=== PATIENT | male | born 1940 | race Caucasian/White ===

== ENCOUNTER 2021-12-30 06:17 | Inpatient (IN) | payer MEDICARE ==
[~2021-12-30] VITALS: Ht 175.3 cm; Wt 90.0 kg
[~2021-12-30 06:17] MED LIST: LOVA40 PO; OXYACE5T PO; TERA5 PO
[2021-12-30 06:36] LABS: BASOPHILS ABSOLUTE AUTO 0.02 K/mm3 (0.00-0.23); BASOPHILS PERCENT AUTO 0 % (0-2); EOSINOPHILS PERCENT AUTO 1 % (0-6); Hematocrit 36.2 % (37.0-53.0); Hemoglobin 11.4 g/dL (13.5-17.5); IMMATURE GRAN ABSOLUTE AUTO 0.05 K/mm3 (0.00-0.10); IMMATURE GRAN PERCENT AUTO 0 % (0-1); LYMPHOCYTES ABSOLUTE AUTO 1.16 K/mm3 (0.84-5.20); LYMPHOCYTES PERCENT AUTO 8 % (21-46); MONOCYTES ABSOLUTE AUTO 1.15 K/mm3 (0.16-1.47); MONOCYTES PERCENT AUTO 8 % (4-13); Mean Corpuscular HGB 23.8 pg (26.0-34.0); Mean Corpuscular HGB Conc 31.5 g/dL (31.5-36.5); Mean Corpuscular Volume 76 fL (80-100); Mean Platelet Volume 9.3 fL (9.1-12.4); NEUTROPHILS ABSOLUTE AUTO 12.24 K/mm3 (1.96-9.15); NEUTROPHILS PERCENT AUTO 83 % (41-73); Platelet Count 335 K/mm3 (150-400); RDW Standard Deviation 44.2 fL (35.1-46.3); Red Blood Cell Count 4.79 M/mm3 (4.30-5.90); White Blood Cell Count 14.72 K/mm3 (4.00-11.30)
[2021-12-30 06:54] LABS: Alanine Aminotransfer (ALT/SGP 31 U/L (12-78); Albumin, Blood 3.1 g/dL (3.4-5.0); Albumin/Globulin Ratio 0.8 (0.8-1.8); Alk Phos 95 U/L (50-136); Anion Gap 11 mmol/L (6-16); Aspartate Aminotrans (AST/SGOT 22 U/L (12-37); Bilirubin, Total 0.4 mg/dL (0.1-1.0); Blood Urea Nitrogen 14 mg/dL (8-24); Bun/Creatinine Ratio 17.7 (12.0-20.0); CO2, Blood 22 mmol/L (21-32); Calcium, Blood 8.8 mg/dL (8.5-10.1); Chloride, Blood 105 mmol/L (98-108); Creatinine, Blood 0.79 mg/dL (0.60-1.20); Glomerular Filtration Rate >60 (60-); Glucose, Blood 172 mg/dL (70-99); Potassium, Blood 3.8 mmol/L (3.5-5.5); Sodium, Blood 138 mmol/L (136-145); Total Protein, Blood 7.1 g/dL (6.4-8.2)
[2021-12-30 06:56] LABS: Source, Urine Voided
[2021-12-30 07:00] LABS: Bilirubin, Urine Neg (Neg); Blood, Urine 2+ (Neg); Glucose Qualitative, Urine Neg (Neg); Ketones, Urine 1+ (Neg); Leukocyte Esterase, Urine Neg (Neg); Nitrite, Urine Neg (Neg); Protein, Urine 2+ (Neg); Urobilinogen, Urine NORM (Normal)
[2021-12-30 07:14] LABS: Appearance, Urine Clear (Clear); Color, Urine Yellow (P-Yellow); Mucus Light (0-Heavy)
[2021-12-30 07:15] LABS: Squamous Epithelial Cells Rare /hpf (Few)
[2021-12-30 07:17] LABS: Bacteria Rare /hpf
[2021-12-30 08:53] LABS: Influenza A, PCR NEGATIVE (NEGATIVE); Influenza B, PCR NEGATIVE (NEGATIVE); Resp Syncytial Virus, PCR NEGATIVE (NEGATIVE); SARS-Cov-2 (COVID-19) PCR, MMC NEGATIVE (NEGATIVE)
--- NOTE | 2021-12-30 13:44 | NUR ---
PATIENT ARRIVED TO UNIT FROM ED AT 1250 AWAKE,ALERT AND ORIENTED TIMES THREE.DENIES PAIN. MADE AWRE OF PATIENT ABDOMINAL CT AND NEW ORDER RECIEVED FOR SURGERY CONSULT AND KEEP PATIENT NPO. DR. JOHNSON STATES THAT SHE WILL MAKE CHANGE TO PATIENT ANTIBIOTIC TREATMENT.
--- NOTE | 2021-12-30 14:30 | NUR ---
MADE AWARE THAT PATIENT IS AFIB ON THE MONITOR,NO NEW ORDER RECIEVED. MD ADVISED NURSE TO NOTIFY MD IF RATE INCREASE.
--- NOTE | 2021-12-30 17:20 | NUR ---
PATIENT ARRIVED TO UNIT FROM ED AWAKE,ALERT AND ORIENTED TIMES THREE. PATIENT REMAIN NPO. DR. DELONG ROUND ON PATIENT AND DISCUSS PLAN OF CARE. PATIENT IS AFIB AT A RATE AT 90.NO ACUTE DISTRESS NOTED.PATIENT ENCOURAGE TO USE CALL RAJAN FOR ASSISTANCE.
--- NOTE | 2021-12-31 04:49 | NUR ---
SHIFT SUMMARY PATIENT ALERT WITH SOME FORGETFULLNESS ABLE TO VOICE NEEDS PATIENT NOTED WITH SINUS TACH AND MULTIPLE PVCS HR 90-[address] MATTA MADE AWARE TYLENOL ADM WITH RELIEF TEMP 98.8.PT CALM PLEASANT NO S/S OF DISTRESS CONT ZOSYN Q 6.PT IS NPO FOR PROCEDURE TODAY ABDOMINAL DISTENDED WITH HYPO ACTIVE BOWEL SOUNDS PORTER INTACT DRAINING DARK BROWN URINE ON CONT NS RUNNING AT 100ML/HR.
[2021-12-31 05:17] LABS: BASOPHILS ABSOLUTE AUTO 0.02 K/mm3 (0.00-0.23); BASOPHILS PERCENT AUTO 0 % (0-2); EOSINOPHILS ABSOLUTE AUTO 0.01 K/mm3 (0.00-0.68); EOSINOPHILS PERCENT AUTO 0 % (0-6); Hematocrit 34.5 % (37.0-53.0); Hemoglobin 10.8 g/dL (13.5-17.5); IMMATURE GRAN PERCENT AUTO 1 % (0-1); LYMPHOCYTES ABSOLUTE AUTO 1.44 K/mm3 (0.84-5.20); LYMPHOCYTES PERCENT AUTO 8 % (21-46); MONOCYTES ABSOLUTE AUTO 0.92 K/mm3 (0.16-1.47); MONOCYTES PERCENT AUTO 5 % (4-13); Mean Corpuscular HGB 23.6 pg (26.0-34.0); Mean Corpuscular HGB Conc 31.3 g/dL (31.5-36.5); Mean Corpuscular Volume 75 fL (80-100); Mean Platelet Volume 9.6 fL (9.1-12.4); NEUTROPHILS ABSOLUTE AUTO 15.52 K/mm3 (1.96-9.15); NEUTROPHILS PERCENT AUTO 86 % (41-73); Platelet Count 307 K/mm3 (150-400); RDW Coefficient Variation 16.7 % (11.7-14.2); RDW Standard Deviation 45.1 fL (35.1-46.3); Red Blood Cell Count 4.58 M/mm3 (4.30-5.90); White Blood Cell Count 18.01 K/mm3 (4.00-11.30)
[2021-12-31 05:37] LABS: Anion Gap 8 mmol/L (6-16); Blood Urea Nitrogen 10 mg/dL (8-24); Bun/Creatinine Ratio 12.5 (12.0-20.0); CO2, Blood 24 mmol/L (21-32); Calcium, Blood 8.8 mg/dL (8.5-10.1); Chloride, Blood 106 mmol/L (98-108); Glomerular Filtration Rate >60 (60-); Glucose, Blood 109 mg/dL (70-99); Potassium, Blood 3.6 mmol/L (3.5-5.5); Sodium, Blood 138 mmol/L (136-145)
--- NOTE | 2021-12-31 12:44 | NUR ---
12/31/21 1244 Adolph Gary PATIENT ARRIVED TO OR WITH PORTER CATH IN DRAINING DARK WALTER URINE AND ON SCHEDULED ANTIBIOTICS TAP BLACK DONE INTRA OP PER DR. DELONG
--- NOTE | 2021-12-31 13:57 | NUR ---
REPORT GIVEN TO GUICHO PASCUAL ON SURGICAL FLOOR. NON FURTHER QUESTIONS REQUIRED AT THIS TIME.
--- NOTE | 2021-12-31 17:37 | NUR ---
1625 ASSUMED CARE DROWSY DOES OPEN EYES TO VERBAL STIMULI AND COUGHED WHEN I ASKED HIM TO. LUNGS DO SOUND MUCH BETTER RESP A LITTLE LABORED NO FACIAL GRIMACE
--- NOTE | 2021-12-31 18:34 | NUR ---
PT. TO ROOM #[id number] AT 1820. SLEEPY BUT AROUSABLE. DENIES PAIN, ABDOMEN IS TENDER TO TOUCH. O2 UP TO 3.5L AT THIS TIME , PER NC, TO KEEP SATS ABOVE 90%, AT THIS TIME IS 91%. .IVF AT TKO AT THIS TIME. VSS. TELEMETRY APPLIED, NSR 68. [place] TO GRAVITY, PATENT.
[2022-01-01 06:21] LABS: BASOPHILS ABSOLUTE AUTO 0.01 K/mm3 (0.00-0.23); BASOPHILS PERCENT AUTO 0 % (0-2); EOSINOPHILS PERCENT AUTO 0 % (0-6); Hematocrit 30.9 % (37.0-53.0); Hemoglobin 9.3 g/dL (13.5-17.5); IMMATURE GRAN ABSOLUTE AUTO 0.12 K/mm3 (0.00-0.10); IMMATURE GRAN PERCENT AUTO 1 % (0-1); LYMPHOCYTES ABSOLUTE AUTO 1.26 K/mm3 (0.84-5.20); LYMPHOCYTES PERCENT AUTO 9 % (21-46); MONOCYTES ABSOLUTE AUTO 0.67 K/mm3 (0.16-1.47); MONOCYTES PERCENT AUTO 5 % (4-13); Mean Corpuscular HGB 23.6 pg (26.0-34.0); Mean Corpuscular HGB Conc 30.1 g/dL (31.5-36.5); Mean Corpuscular Volume 78 fL (80-100); Mean Platelet Volume 10.1 fL (9.1-12.4); NEUTROPHILS ABSOLUTE AUTO 12.63 K/mm3 (1.96-9.15); NEUTROPHILS PERCENT AUTO 86 % (41-73); Platelet Count 280 K/mm3 (150-400); RDW Coefficient Variation 16.5 % (11.7-14.2); RDW Standard Deviation 47.9 fL (35.1-46.3); Red Blood Cell Count 3.94 M/mm3 (4.30-5.90); White Blood Cell Count 14.69 K/mm3 (4.00-11.30)
[2022-01-01 06:41] LABS: Albumin, Blood 2.1 g/dL (3.4-5.0); Anion Gap 6 mmol/L (6-16); Blood Urea Nitrogen 23 mg/dL (8-24); Bun/Creatinine Ratio 22.8 (12.0-20.0); CO2, Blood 26 mmol/L (21-32); Calcium, Blood 7.9 mg/dL (8.5-10.1); Chloride, Blood 106 mmol/L (98-108); Creatinine, Blood 1.01 mg/dL (0.60-1.20); Glomerular Filtration Rate >60 (60-); Glucose, Blood 135 mg/dL (70-99); Phosphorus, Blood 2.8 mg/dL (2.5-4.9); Sodium, Blood 138 mmol/L (136-145)
--- NOTE | 2022-01-01 07:22 | NUR ---
POD 1 S/P COLECTOMY. SATS >90% ON 3LO2, PT EDUCATED ON TCDB AND I/S USE. PT HAD T-MAX OF 100.8, RESOLVED W/TYLENOL AND NON PHARM COOLING MEASURES. INCISIONS CDI. ABD REMAINS DISTENDED AND GAURDED. BT HYPO, PT REP NO FLATUS YET. PT BRINDA CL PO, DENIED N/V. PORTER PATANT PATANT DRNG TEA COLORED URINE. PAIN MGD PER EMAR. PT REPOSITIONED BRINDA, DOES SHIFT SELF IN BED. REPORT GIVEN TO SHUKRI Campo RN.
--- NOTE | 2022-01-01 09:38 | NUR ---
PT EDUCATED PARCEL POST ORDER CLERK LIGHT USE AND SAFETY MEASURES. PT STATES HE IS "STUBBORN AND WILL DO IT WHEN I AM READY", "WILL DO IT ON MY OWN". REINFORCED IMPORTANCE OF LETTING US HELP TO PREVENT FALLS AND PROVIDE SAFETY FOR HIM.
--- NOTE | 2022-01-01 14:52 | NUR ---
SHIFT SUMMARY POD 1 LAP COLECTOMY, X4 INCISIONS W/DERMABOND, C/D/I. MILD DISTENTION TO ABD, HYPO BT. DENIES FLATUS. A&O X 4, VSS, AFEBRILE, SATS >92% ON RA, [place]. LOW TO ZERO PO INTAKE. ZOFRAN GIVEN X1 FOR N/V. PORTER IN PLACE, DRAINING CLEAR YELLOW URINE, STAT LOCK IN PLACE, BAG OFF FLOOR. PAIN MANAGED W/ TYLENOL AND 5MG OXYCODONE. WILL REPORT TO ONCOMING RN.
--- NOTE | 2022-01-02 03:52 | NUR ---
PT CONT TO HAVE ONGOING N/V. PT HAD MULTIPLE EPISODES OF UNMEASURED BILE COLORED EMESIS W/NO SIG RELIEF W/PRN NAUSEA MEDS. NGT PLACED W/BILE COLORED DRNG. TUBE PLACED TO LIS. PT EDUCATED.
[2022-01-02 04:09] LABS: BASOPHILS ABSOLUTE AUTO 0.01 K/mm3 (0.00-0.23); BASOPHILS PERCENT AUTO 0 % (0-2); EOSINOPHILS ABSOLUTE AUTO 0.03 K/mm3 (0.00-0.68); EOSINOPHILS PERCENT AUTO 0 % (0-6); Hematocrit 32.5 % (37.0-53.0); Hemoglobin 9.9 g/dL (13.5-17.5); IMMATURE GRAN ABSOLUTE AUTO 0.04 K/mm3 (0.00-0.10); IMMATURE GRAN PERCENT AUTO 0 % (0-1); LYMPHOCYTES ABSOLUTE AUTO 0.71 K/mm3 (0.84-5.20); LYMPHOCYTES PERCENT AUTO 7 % (21-46); MONOCYTES ABSOLUTE AUTO 0.57 K/mm3 (0.16-1.47); MONOCYTES PERCENT AUTO 5 % (4-13); Mean Corpuscular HGB 23.5 pg (26.0-34.0); Mean Corpuscular HGB Conc 30.5 g/dL (31.5-36.5); Mean Corpuscular Volume 77 fL (80-100); Mean Platelet Volume 10.1 fL (9.1-12.4); NEUTROPHILS PERCENT AUTO 88 % (41-73); Platelet Count 319 K/mm3 (150-400); RDW Coefficient Variation 16.5 % (11.7-14.2); RDW Standard Deviation 46.4 fL (35.1-46.3); Red Blood Cell Count 4.21 M/mm3 (4.30-5.90); White Blood Cell Count 10.96 K/mm3 (4.00-11.30)
--- NOTE | 2022-01-02 05:31 | NUR ---
POD 2 S/P COLECTOMY. PT VSS T/O NIGHT. 1-2L O2 IN PLACE WHILE PT SLEEPING. PT HAD >[address] DAIGLE NOTIFIED, ORDER OBTAINED FOR NGT EARLY IN SHIFT, PT HESITANT, BUT FINALLY AGREED AROUND 0300 THIS AM. NGT PLACED TO LIS W/TOTAL OF 1600ML BILE DRNG OUTPUT SINCE DRAIN PLACED. PT HAD 1 SOFT BM, PASSED SMALL AMT FLATUS. ABD REMAINS DISTENDED, SOFTER AND LESS GUARDED TO PALP. PORTER DRAINING SOLID WASTE ENGINEER YELLOW URINE. PAIN MGD PER EMAR. PT UP OOB W/1-2 ASSIST, IS WEAK WHEN UP.
--- NOTE | 2022-01-02 08:00 | NUR ---
RECEIVED CALL FROM TELE REPORTING ST ELEVATION IN LEAD 2 AND AV AND CHEIKH RATE, MULTIPLE PAIR PVCS. EKG DONE: NSR 68 BPM WITH PACS & PVCS. HOSPITALIST CALLED WITH RESULTS, LEFT MESSAGE TO CALL SURGICAL FLOOR.
[2022-01-02 09:16] LABS: Albumin, Blood 2.2 g/dL (3.4-5.0); Anion Gap 7 mmol/L (6-16); Blood Urea Nitrogen 28 mg/dL (8-24); Bun/Creatinine Ratio 26.4 (12.0-20.0); CO2, Blood 32 mmol/L (21-32); Calcium, Blood 7.9 mg/dL (8.5-10.1); Chloride, Blood 103 mmol/L (98-108); Creatinine, Blood 1.06 mg/dL (0.60-1.20); Glomerular Filtration Rate >60 (60-); Glucose, Blood 117 mg/dL (70-99); Magnesium, Blood 2.2 mg/dL (1.6-2.4); Phosphorus, Blood 2.8 mg/dL (2.5-4.9); Potassium, Blood 3.7 mmol/L (3.5-5.5); Sodium, Blood 142 mmol/L (136-145)
--- NOTE | 2022-01-02 10:01 | NUR ---
called palliative care to discuss code status with patient
--- NOTE | 2022-01-02 13:50 | NUR ---
Made a visit to pt's room today. He is pleasant, alert and oriented. His nickname is "Ru". He hasn't been to the doctor in many years, and takes no medication. He considers himself generally healthy. He recently had a GLF, and after coming to ED and was found to have a perforated bowel causing multiple symptoms. Patient is very clear, he does not want any CPR or Intubation. He also would not want a permanent PEG tube. I also reviewed his choices with his Jinny via t/c. POL to be signed and placed in front of hard chart. Will obtain copy for medical records after MD signature. Original to go home with patient.
--- NOTE | 2022-01-02 14:00 | NUR ---
Spiritual Care Visit Based on referral from floor nurse. Pt. was in bed and alert. While cautious at first pt. welcomed my visit. Pt. is unsettled by the circumstances of our world. Pt. verbalizes that those circumstances make him ready to pass from this earth. Listen empathetically. Establish rapport. Pt. displays evidence of being ini pain. Provide a calming presence. Facilitated a life review, particulalry about matters of lizbeth and belief. Offered emotional support. With permission prayed for pt. Pt. displayed evidence of receptivity, and verbalized gratitude for the spiritual care visit and pastoral prayer.
--- NOTE | 2022-01-02 15:22 | NUR ---
TELEPHONE CALL WITH HOSPITALISTESTEBAN ON FRONT OF CHART CHANGING CODE STATUS TO DNR, NEEDS DOCTOR SIGNATURE AND NEED TO CHANGE CODE STATUS IN COMPUTER. SAID TO LEAVE ESTEBAN ON FRONT OF CHART AND WILL COME BY TO SIGN, AND OK TO CHANGE CODE STATUS TO DNR IN COMPUTER CHART.
--- NOTE | 2022-01-02 18:47 | NUR ---
SHIFT SUMMARY POD9 COLECTOMY, X4 SX SITES W/DERMABOND, WNL. MILD ABD DISTENTION, TENDER TO PALP. NG TUBE IN PLACE WITH LOW INT SUCT., GREEN FLUID DRNG, FLUSHED FREQ T/O DAY. PT DENIES N/V AT THIS TIME, DENIES FLATUS. PORTER IN PLACE, STAT LOCK ON & OFF FLOOR, DRNG CLEAR YELLOW URINE. HIGH BP T/O DAY TREATED PER EMAR, 2L O2 VIA NC FOR PT COMFORT. ELEVATED TROPONIN, CARDIOLOGY CONSULTED - WILL MEET AGAIN W/ AT BEDSIDE TMRW 01/03 @ NOON. WILL REPORT TO ONCOMING RN.
--- NOTE | 2022-01-02 19:01 | NUR ---
TELEPHONE CALL WITH ELLA, SHE WILL BE HERE FOR SURFACE GRINDER MEETING IN PATIENT'S ROOM AT 12 NOON.
[2022-01-03 01:00] LABS: Albumin, Blood 2.1 g/dL (3.4-5.0); Anion Gap 4 mmol/L (6-16); Blood Urea Nitrogen 27 mg/dL (8-24); Bun/Creatinine Ratio 27.6 (12.0-20.0); CO2, Blood 36 mmol/L (21-32); Calcium, Blood 8.6 mg/dL (8.5-10.1); Chloride, Blood 103 mmol/L (98-108); Cholesterol 154 mg/dL (50-200); Creatinine, Blood 0.98 mg/dL (0.60-1.20); Glomerular Filtration Rate >60 (60-); Glucose, Blood 96 mg/dL (70-99); HDL Cholesterol 7 mg/dL (>39); LDL/HDL RATIO 13.3; Low Density Lipoprotein Chol 93 mg/dL (0-110); Phosphorus, Blood 2.4 mg/dL (2.5-4.9); Potassium, Blood 3.6 mmol/L (3.5-5.5); Sodium, Blood 143 mmol/L (136-145); Triglycerides 270 mg/dL (30-160); Very Low Density Lipoprot Chol 54 mg/dL (6-32)
--- NOTE | 2022-01-03 06:15 | NUR ---
SUMMARY PT CONTINUES TO HAVE NG TUBE THAT IS DRAINING GREEN FLUID. PT REPORTS DECREASE IN EPISODES OF PAIN. PT HAS BEEN ABLE TO TRANSFER WITH ASSISTANCE TO BSC AND HAVE A BM. PT TROPINS HAVE BEEN DRAWN AND ARE TRENDING DOWN. PT HAS DENIED CHEST PAIN/ PRESSURE OR SOB. PT HAS BEEN ABLE TO SLEEP DURING SHIFT. PT CURRENTLY RESTING IN NO DISTRESS, CALL LIGHT IN REACH.
--- NOTE | 2022-01-04 03:45 | NUR ---
SHIFT SUMMARY A/O X3. BEDREST THIS SHIFT. POD4 COLECTOMY, LAP SITES WITH DERMABOND C/D/I. VITAL SIGNS STABLE. TOLERATING SIPS AND CHIPS. PORTER DRAINING TO GRAVITY, DARK WALTER/REDDISH IN COLOR. PAIN REPORTED IN THE BEGINING OF THE SHIFT AND TREATED PER EMAR, NO MORE REPORTS OF PAIN AT THIS TIME. TELE IN PLACE. WILL CONTINUE TO MONITOR AND REPORT TO ONCOMING RN.
[2022-01-04 04:15] LABS: Hematocrit 33.3 % (37.0-53.0); Mean Corpuscular HGB 23.4 pg (26.0-34.0); Mean Corpuscular Volume 78 fL (80-100); Mean Platelet Volume 9.7 fL (9.1-12.4); Platelet Count 344 K/mm3 (150-400); RDW Coefficient Variation 16.6 % (11.7-14.2); RDW Standard Deviation 47.3 fL (35.1-46.3); Red Blood Cell Count 4.27 M/mm3 (4.30-5.90); White Blood Cell Count 7.25 K/mm3 (4.00-11.30)
[2022-01-04 04:33] LABS: Anion Gap 3 mmol/L (6-16); Blood Urea Nitrogen 24 mg/dL (8-24); Bun/Creatinine Ratio 29.4 (12.0-20.0); CO2, Blood 35 mmol/L (21-32); Calcium, Blood 8.7 mg/dL (8.5-10.1); Chloride, Blood 104 mmol/L (98-108); Creatinine, Blood 0.82 mg/dL (0.60-1.20); Glomerular Filtration Rate >60 (60-); Glucose, Blood 105 mg/dL (70-99); Phosphorus, Blood 2.5 mg/dL (2.5-4.9); Potassium, Blood 3.4 mmol/L (3.5-5.5); Sodium, Blood 142 mmol/L (136-145)
--- NOTE | 2022-01-04 06:37 | NUR ---
VITALS TAKEN THE CALL PLACED TO THE HOSPITALIST ABOUT PATIENT HAVING A RUN OF SVT'S WITH HR IN THE 140'S, HE WOULD LIKE A CHEM PANEL ORDERED AT THIS TIME. WILL CONTINUE TO MONITOR.
--- NOTE | 2022-01-04 06:45 | NUR ---
CALLED SECURITIES TELLER HOSPITALIST WITH RESULT FROM INSPECTION CLERK THAT PATIENT HAD A RUN OF SVT WITH HR IN 140'S, HE WANTED A CHEM PANEL DONE BUT I LET HIM KNOW THAT HE HAD JUST HAD THEM DONE, HE STATED HE WOULD TAKE A LOOK AND GO FROM THERE. WILL CONTINUE TO MONITOR.
--- NOTE | 2022-01-04 14:21 | NUR ---
REPORT GIVEN AND CARE TURNED OVER TO JORGE Herrera RN.
--- NOTE | 2022-01-04 15:24 | NUR ---
ASSUMED PT. CARE AT THIS TIME. PATIENT DENIES ANY DISCOMFORT OR NEEDS. DID JUST HAVE SHOWER WITH ASSIST AND TOLERATE WELL. SITTING UP IN CHAIR WITH VISITING AT BEDSIDE. ENCOURAGED TO USE CALL LIGHT FOR ANY NEEDS, CONCERNS, COMPLAINTS.
--- NOTE | 2022-01-05 04:01 | NUR ---
SHIFT SUMMARY A/O X4- POD4 LAP COLECTOMY- LAP SITES NET DEVELOPER PROGRAMMER WITH DERMABOND INTACT. VOIDING AND HAVING BOWEL MOVEMENTS, TOLERATING DIET. NO N/V NOTED. TREATED FOR PAIN WITH PO PAIN MEDICATION. VITAL SIGNS STABLE. ON TELE: REPORT OF SR WITH BBB, PAC, AND PVC. AMBULATING WITH FWW TO BATHROOM. WILL CONTINUE TO MONITOR AND REPORT TO ONCOMING RN.
[2022-01-05 04:15] LABS: Albumin, Blood 2.1 g/dL (3.4-5.0); Anion Gap 7 mmol/L (6-16); Blood Urea Nitrogen 22 mg/dL (8-24); Bun/Creatinine Ratio 31.1 (12.0-20.0); CO2, Blood 28 mmol/L (21-32); Calcium, Blood 8.5 mg/dL (8.5-10.1); Chloride, Blood 106 mmol/L (98-108); Creatinine, Blood 0.71 mg/dL (0.60-1.20); Glomerular Filtration Rate >60 (60-); Glucose, Blood 137 mg/dL (70-99); Potassium, Blood 3.3 mmol/L (3.5-5.5); Sodium, Blood 141 mmol/L (136-145)
--- NOTE | 2022-01-05 07:56 | NUR ---
PT UPSET WHEN AWAKENED FOR VS THIS AM. HE REPORTS HE DID NOT GET ANY SLEEP DURING THE NIGHT. PLAN TO ALLOW PT TO SLEEP UNDISTURBED UNTIL APROXIMATELY 1000 UNLESS ASSISTANCE IS NEEDED. WILL CONTINUE TO MONITOR.
--- NOTE | 2022-01-05 11:30 | NUR ---
DR. WILLIS ROUNDED AT 1123. DISCUSSED HEMATURIA AND BLOOD IN TOILET AFTER PT HAD A BM. STOOL DID NOT APPEAR BLACK OR TARRY. PLAN FOR DISCHARGE HOME TOMORROW PER DR. WILLIS. WILL CONTINUE TO MONITOR.
--- NOTE | 2022-01-05 18:14 | NUR ---
SHIFT SUMMARY PT IS POD#4 FROM A COLECTOMY WITH DR. DELONG. PT IS PASSING STOOL. HE DOES HAVE BLOOD IN HIS URINE, DR. DELONG AND DR. WILLIS ARE AWARE. PT IS INDEPENDENT IN HIS ROOM. PAIN MANAGED WITH TYLENOL. PT'S VISITED TODAY. PLAN FOR POSSIBLE DC HOME TOMORROW. WILL CONTINUE TO MONITOR.
[2022-01-06 04:29] LABS: Hematocrit 32.6 % (37.0-53.0); Hemoglobin 9.7 g/dL (13.5-17.5); Mean Corpuscular HGB 22.9 pg (26.0-34.0); Mean Corpuscular HGB Conc 29.8 g/dL (31.5-36.5); Mean Corpuscular Volume 77 fL (80-100); Mean Platelet Volume 9.8 fL (9.1-12.4); Platelet Count 345 K/mm3 (150-400); RDW Standard Deviation 46.9 fL (35.1-46.3); Red Blood Cell Count 4.24 M/mm3 (4.30-5.90); White Blood Cell Count 7.11 K/mm3 (4.00-11.30)
[2022-01-06 04:58] LABS: Albumin, Blood 2.1 g/dL (3.4-5.0); Anion Gap 6 mmol/L (6-16); Blood Urea Nitrogen 17 mg/dL (8-24); Bun/Creatinine Ratio 24.7 (12.0-20.0); CHOL/HDL RATIO 7.4; CO2, Blood 28 mmol/L (21-32); Calcium, Blood 8.6 mg/dL (8.5-10.1); Chloride, Blood 106 mmol/L (98-108); Cholesterol 89 mg/dL (50-200); Creatinine, Blood 0.69 mg/dL (0.60-1.20); Glomerular Filtration Rate >60 (60-); Glucose, Blood 105 mg/dL (70-99); HDL Cholesterol 12 mg/dL (>39); LDL/HDL RATIO 3.9; Low Density Lipoprotein Chol 47 mg/dL (0-110); Phosphorus, Blood 3.2 mg/dL (2.5-4.9); Potassium, Blood 3.4 mmol/L (3.5-5.5); Sodium, Blood 140 mmol/L (136-145); Triglycerides 150 mg/dL (30-160); Very Low Density Lipoprot Chol 30 mg/dL (6-32)
[2022-01-06] MEDS ORDERED: TAMS.4ER PO (15:32)
[2022-01-06] MEDS ORDERED: ASPI81CH PO (15:32)
[2022-01-06] MEDS ORDERED: METO50ER PO (15:33)
--- NOTE | 2022-01-06 16:12 | NUR ---
DISCHARGE SUMMARY DISCUSSED DISCHARGE INFORMATION c THE PATIEN AND HIS PER HIS REQUEST TO INCLUDE HER. GENERAL CONTACT INFORMATION GIVEN AND PATIENT ENCOURAGE TO CALL PROVIDED PHONE NUMBERS SHOULD QUESTIONS ARISE AFTER THEY HAVE LEFT. DISCHARGE MEDICATIONS DISCUSSED. NO IV ACCESS DEVICES IN PLACE AT TIME OF DISCHARGE. PATIENT AND HIS DENY HAVING ANY QUESTIONS AFTER DISCUSSING INSTRUCTIONS. ESCORTED OUT BY LDR RN TO PRIVATE AUTO TO GO HOME.
== END 2022-01-06 16:01 | disposition home or self-care (01) | DRG 853 ==
LOC: ER 06:17 → MEDS 06:18 → SURS 12-31 10:06 → MEDS 12-31 10:07 → SURS 12-31 13:37
PROVIDERS: Emergency Medicine; Internal Medicine; Surgery; ADMIT Internal Medicine
PROC: 3E02340 Introduction of Influenza Vaccine into Muscle, Percutaneous Approach (ICD-10-PCS; 2021-12-30)
PROC: 3E03329 Introduction of Other Anti-infective into Peripheral Vein, Percutaneous Approach (ICD-10-PCS; 2021-12-31)
PROC: 0DTN4ZZ Resection of Sigmoid Colon, Percutaneous Endoscopic Approach (ICD-10-PCS; principal; 2021-12-31 11:00)
DX: A41.9 Sepsis, unspecified organism (principal); K63.1 Perforation of intestine (nontraumatic); I21.A1 Myocardial infarction type 2; I48.92 Unspecified atrial flutter; C18.7 Malignant neoplasm of sigmoid colon; R65.20 Severe sepsis without septic shock; K57.30 Diverticulosis of large intestine without perforation or abscess without bleeding; I48.91 Unspecified atrial fibrillation; I10 Essential (primary) hypertension; Z23 Encounter for immunization; E83.39 Other disorders of phosphorus metabolism; E87.6 Hypokalemia; R31.9 Hematuria, unspecified; N40.0 Benign prostatic hyperplasia without lower urinary tract symptoms; Z20.822 Contact with and (suspected) exposure to COVID-19; Z72.0 Tobacco use; Z91.81 History of falling; I48.0 Paroxysmal atrial fibrillation
CPT/HCPCS: 0241U; 36415; 51702; 51798; 70450; 71045; 74177; 80048; 80053; 80061; 80069; 81001; 83605; 83735; 83880; 84484; 85025; 85027; 87040; 88305; 88309; 90686; 93005; 93010; 93306; 94640; 94760; 94762; 96375; 96376; 97116; 97161; 97166; 97530; 99285-25; A9270; C9113; G0008; G0378; J0696; J1100; J1170; J1650; J1940; J2370; J2405; J2543; J2550; J2704; J3010; J3480; J7030; J7040; J7050; J7060; Q9967

== ENCOUNTER 2023-07-02 10:04 | Day surgery (SDC) | payer MEDICARE ==
[~2023-07-02] VITALS: Ht 165.1 cm; Wt 93.2 kg
[~2023-07-02 10:04] MED LIST changes: +ASPI81CH PO; +Bactrim Ds Tab1 EACH PO; +METO50ER PO; +Mupirocin22 GM TOP; +TAMS.4ER PO
[2023-07-02] MEDS ORDERED: FINA5 (10:28)
[2023-07-02] MEDS ORDERED: LISI20 (10:28)
[2023-07-02] MEDS ORDERED: LORA10ER (10:29)
[2023-07-02] MEDS ORDERED: AMLO5 (10:29)
--- NOTE | 2023-07-02 10:41 | NUR ---
07/02/23 1041 Hazel Mohamud TETRACAINE DROP IN LEFT EYE PLACED AT 1031 PLEDGET PLACED IN LEFT EYE AT 1032 PATIENT TOLERATED WELL.
[2023-07-02 11:56] VITALS: BP 142/81
--- NOTE | 2023-07-02 11:56 | NUR ---
07/02/23 1156 Patricia Rojas IV REMOVED CANNULA INTACT, PT TOLERATED WELL. PT DENIES NAUSEA AND PAIN
== END 2023-07-02 12:05 | disposition home or self-care (01) ==
LOC: ORSCSDS 10:04
PROVIDERS: Ophthalmology
PROC: 08RK3JZ Replacement of Left Lens with Synthetic Substitute, Percutaneous Approach (ICD-10-PCS; principal; 2023-07-02 11:30)
DX: E11.36 Type 2 diabetes mellitus with diabetic cataract (principal); H25.12 Age-related nuclear cataract, left eye; I10 Essential (primary) hypertension; Z86.73 Personal history of transient ischemic attack (TIA), and cerebral infarction without residual deficits; I25.2 Old myocardial infarction; E66.9 Obesity, unspecified; Z68.34 Body mass index [BMI] 34.0-34.9, adult; Z79.82 Long term (current) use of aspirin; Z79.899 Other long term (current) drug therapy
CPT/HCPCS: 82947; J2250; J3010; J3301; J7040; V2632

== ENCOUNTER 2023-07-09 10:11 | Day surgery (SDC) | payer MEDICARE ==
[~2023-07-09] VITALS: Ht 165.1 cm; Wt 91.5 kg
[~2023-07-09 10:11] MED LIST changes: +AMLO5; +FINA5; +LISI20; +LORA10ER
--- NOTE | 2023-07-09 11:02 | NUR ---
07/09/23 1102 Shana Rasmussen CORRECT EYE IDENTIFIED RIGHT EYE PER PT AND CONSENT. TETRICANE PLACED IN RIGHT EYE AT 1048. PLEGET FOAM PLACED IN RIGHT EYE AT 1049. PT TOLERATED WELL. CALL LIGHT WITHIN REACH.
[2023-07-09 12:09] VITALS: BP 138/94
--- NOTE | 2023-07-09 12:31 | NUR ---
07/09/23 1231 Johann Bullard IV REMOVED. SITE WNL.
== END 2023-07-09 12:25 | disposition home or self-care (01) ==
LOC: ORSCSDS 10:11
PROVIDERS: Ophthalmology
PROC: 08RJ3JZ Replacement of Right Lens with Synthetic Substitute, Percutaneous Approach (ICD-10-PCS; principal; 2023-07-09 11:30)
DX: E11.36 Type 2 diabetes mellitus with diabetic cataract (principal); H25.11 Age-related nuclear cataract, right eye; Z96.1 Presence of intraocular lens; I10 Essential (primary) hypertension; I25.2 Old myocardial infarction; Z85.038 Personal history of other malignant neoplasm of large intestine; E66.9 Obesity, unspecified; Z68.33 Body mass index [BMI] 33.0-33.9, adult; Z79.899 Other long term (current) drug therapy
CPT/HCPCS: 82947; J2250; J3010; J3301; J7040; V2632

== ENCOUNTER → 2025-01-16 | Outpatient (CLI) | payer OTHER ==
[2025-01-16 19:16] LABS: BASOPHILS ABSOLUTE AUTO 0.03 K/mm3 (0.00-0.23); BASOPHILS PERCENT AUTO 0 % (0-2); EOSINOPHILS ABSOLUTE AUTO 0.25 K/mm3 (0.00-0.68); EOSINOPHILS PERCENT AUTO 3 % (0-6); Hematocrit 45.6 % (37.0-53.0); IMMATURE GRAN ABSOLUTE AUTO 0.02 K/mm3 (0.00-0.10); IMMATURE GRAN PERCENT AUTO 0 % (0-1); LYMPHOCYTES PERCENT AUTO 28 % (21-46); MONOCYTES ABSOLUTE AUTO 0.67 K/mm3 (0.16-1.47); MONOCYTES PERCENT AUTO 9 % (4-13); Mean Corpuscular HGB 29.3 pg (26.0-34.0); Mean Corpuscular HGB Conc 32.9 g/dL (31.5-36.5); Mean Corpuscular Volume 89 fL (80-100); Mean Platelet Volume 10.3 fL (9.1-12.4); NEUTROPHILS ABSOLUTE AUTO 4.63 K/mm3 (1.96-9.15); NEUTROPHILS PERCENT AUTO 59 % (41-73); Platelet Count 293 K/mm3 (150-400); RDW Coefficient Variation 14.1 % (11.7-14.2); RDW Standard Deviation 46.3 fL (35.1-46.3); Red Blood Cell Count 5.12 M/mm3 (4.30-5.90)
[2025-01-16 23:41] LABS: Albumin, Blood 3.5 g/dL (3.4-5.0); Albumin/Globulin Ratio 0.9 (0.8-1.8); Bilirubin, Total 0.4 mg/dL (0.1-1.0); Bun/Creatinine Ratio 21.4 (12.0-20.0); Calcium, Blood 9.3 mg/dL (8.5-10.1); Creatinine, Blood 0.7 mg/dL (0.60-1.20); Globulin, Blood 3.9 g/dL (2.2-4.0); Potassium, Blood 4.3 mmol/L (3.5-5.5); Total Protein, Blood 7.4 g/dL (6.4-8.2)
== END | disposition home or self-care (01) ==
LOC: LAB 18:02 → LAB SHORT 18:02
PROVIDERS: Family Medicine
DX: I10 Essential (primary) hypertension (principal)
CPT/HCPCS: 80053; 85025